=== PATIENT | female | born 1980 | race Caucasian/White ===

== ENCOUNTER 2022-04-09 14:21 | Emergency (ER) | payer OTHER ==
[2022-04-09] MEDS ORDERED: Diphtheria/Tetanus Toxoids,Adult (Td) 0.5 ML SDV IM ONE (15:08)
[2022-04-09] MEDS ORDERED: Bacitracin Oint 1 GM U/D Packet TOP ONE (15:11)
[2022-04-09] MEDS ORDERED: Lidocaine 1% with EPINEPHrine 1:100,000 50 ML MDV INJECT ONE (15:40)
== END 2022-04-09 17:06 | disposition home or self-care (01) ==
LOC: JP.ED 14:21
DX: S01.112A Laceration without foreign body of left eyelid and periocular area, initial encounter (principal); Z23 Encounter for immunization; W22.09XA Striking against other stationary object, initial encounter
CPT/HCPCS: 12013; 70450; 70450-26; 90471; 90714; 99283-25